=== PATIENT | female | born 1965 | race Caucasian/White ===

== ENCOUNTER → 2021-10-05 | Day surgery (SDC) | payer OTHER ==
[~2021-10-05] VITALS: Ht 160 cm; Wt 88.5 kg
[~2021-10-05] MED LIST: ESTRADIOL0.5 MG PO; LEVOTHYROXINE75 MC1 PO; NAPROXEN500 MG PO; OS-CAL500 MG PO; VALSARTAN-HCTZ1 EACH PO; VITAMIN C1000 MG PO; VITAMIN D3125 MC1 PO; ZINC30 MG PO
[2021-10-05 08:48] LABS: HCT 44.1 % (37.0-47.0); HGB 15.1 g/dl (12.5-16.0); MCH 31.6 pg (25.0-31.0); MCHC 34.2 g/dL (32.0-36.0); MCV 92.3 fL (78.0-100.0); MPV 10.2 fL (6.0-9.5); RBC 4.78 M/uL (4.20-5.40); RDW 13.2 % (11.5-14.0); WBC 8.4 K/uL (4.0-10.5)
[2021-10-05 09:25] LABS: ALBUMIN 4.4 g/dL (3.4-5.0); BILIRUBIN - TOTAL 0.5 mg/dL (0.2-1.0); BUN/CREAT RATIO (CALC) 20.9 RATIO; CREATININE 0.67 mg/dL (0.51-0.95); POTASSIUM 3.5 mmol/L (3.5-5.1); TOTAL PROTEIN 8.4 g/dL (6.4-8.2)
== END | disposition home or self-care (01) ==
LOC: FAS 08:00
PROVIDERS: Surgery
DX: R19.7 Diarrhea, unspecified (principal); K56.609 Unspecified intestinal obstruction, unspecified as to partial versus complete obstruction; E03.9 Hypothyroidism, unspecified; I10 Essential (primary) hypertension; Z87.19 Personal history of other diseases of the digestive system; Z90.710 Acquired absence of both cervix and uterus; Z88.0 Allergy status to penicillin
CPT/HCPCS: 36415; 80053; J1610; J2250; J2704; J7120